=== PATIENT | female | born 1990 | race Caucasian/White ===

== ENCOUNTER 2021-03-05 07:55 | Inpatient (IN) | payer OTHER, SELFPAY ==
[2021-03-05] VITALS (69 sets, daily range): BP systolic 103–148; BP diastolic 56–86; PULSE 57–151; RESP 17; TEMP 35.6–36.3; O2SAT 97–100; BMI 42.0
[2021-03-05 08:25] LABS: Basophils % 0.3 %; Eosinophils % 0.3 %; Hematocrit 34.4 % (37.0-47.0); Hemoglobin 11.4 g/dL (11.5-15.3); Lymphocytes # 1.4 10^3/uL (0.8-4.8); Lymphocytes % 20.5 %; Mean Corpuscular HGB Conc 33.1 g/dL (30.0-36.0); Mean Corpuscular Hemoglobin 27.1 pg (28.0-34.0); Mean Corpuscular Volume 81.9 fl (81-99); Mean Platelet Volume 10.4 fL (7.4-10.4); Monocytes # 0.8 10^3/uL (0.2-0.9); Monocytes % 11.5 %; Neutrophils # 4.48 10^3/uL (1.8-7.7); Nucleated Red Blood Cells % 0 %; Platelet Count 215 10^3/cmm (130-400); Red Cell Distribution Width 12.8 % (12.1-15.1); White Blood Count 6.7 10^3/uL (4.0-10.0)
[2021-03-05] MEDS: dextrose 5%-lactated ringers 1,000 ML 125 ML IV ×2 (09:03→19:05)
[2021-03-05] MEDS: oxytocin 30 UNIT/500 ML BAG IV (09:04)
[2021-03-05] MEDS: lactated ringers 1,000 ML 999 ML IV ×2 (16:59→17:55)
[2021-03-05] MEDS: fentaNYL 50 mcg/mL INJ 2mL IVP (18:04)
[2021-03-05] MEDS: acetaminophen 325 mg Tablet 650 MG PO (18:09)
--- NOTE | 2021-03-05 18:10 | P.ANESASSM_ITS ---
Pre-Anesthetic Assessment Pre-Anesthetic Assessment: Height/Weight: Height 5 ft 5 in Weight 114.759 kg Temp Pulse Resp BP Pulse Ox 97.3 F L 64 17 124/69 100 03/05/21 16:57 03/05/21 18:36 03/05/21 18:04 03/05/21 18:36 03/05/21 18:22 Preop Diagnosis: IUP Proposed Procedure: labor epidural Was Beta Fareed taken within 24 hours: N/A Was Clonidine taken within 24 hours: N/A Social: Social History: No alcohol and No tobacco Exam: Pre-Anes Outpt Exam: alert, oriented x 3, clear to auscultation bilaterally and regular rate & rhythm Airway: Submandibular: WNL Cervical ROM: WNL MP: 1 History/ROS: No significant history except as noted Pulmonary: Pulmonary: None reported CV/HEM: CV/HEM: None reported : : None reported Hepatic: Hepatic: None reported GI: GI: None reported Metabolic: Metabolic: None reported Musc/skel: Musc/skel: None reported Neuropsych: Neuropsych: Anxiety and Depression Anesthetic Plan: ASA status: 1 Anesthesia: Anesthesia Evaluation Risk of > 500 ml blood loss (7ml/kg in children): No Meds/Allergies Current Medications: Current Medications Generic Name Dose Route Start Last Admin Trade Name Freq PRN Reason Stop Dose Admin Acetaminophen 650 mg 03/05/21 08:18 03/05/21 18:09 Acetaminophen 32 5 Mg Tablet PO 650 mg Q6H PRN Administration Mild pain or temp > 100.4 Fentanyl 25 - 100 mcg 03/05/21 16:46 03/05/21 18:04 Fentanyl 50 Mcg/ Ml Inj 2ml IVP 25 mcg Q1H PRN Administration SEVERE PAIN Dextrose/Lactated Ringer's 1,000 mls @ 125 m ls/hr 03/05/21 08:30 03/05/21 09:03 Dextrose 5%-Lact ated Ringers IV 125 mls/hr .Q8H JOSH Administration Oxytocin 30 unit in 500 ml s @ 1 mls/hr 03/05/21 08:30 03/05/21 12:15 Pitocin IV 20 milliunit/min .Q24H JOSH 20 mls/hr Titration Protocol 1 MILLIUNIT/MIN Lactated Ringer's 1,000 mls @ 999 m ls/hr 03/05/21 16:44 11/06/21 17:55 Lactated Ringers IV 999 mls/hr .Q1H1M PRN Administration See label comment s PFSH Anesthesia Female Reproductive History: : 2 Data Anesthesia CBC & Chem 7: 03/05/21 08:05 Other Labs: Laboratory Results - last 48 hr 03/05/21 08:05 WBC 6.7 RBC 4.20 Hgb 11.4 L Hct 34.4 L MCV 81.9 MCH 27.1 L MCHC 33.1 RDW 12.8 Plt Count 215 MPV 10.4 Neut % (Auto) 67.0 Lymph % (Auto) 20.5 [place] % (Auto) 11.5 Eos % (Auto) 0.3 Baso % (Auto) 0.3 Neut # (Auto) 4.48 Lymph # (Auto) 1.4 [place] # (Auto) 0.8 Eos # (Auto) 0.0 Baso # (Auto) 0.0 Nucleated RBC % (auto) 0 Nucleated RBCs # 0.0 Cardiac Studies: No Data to Display
--- NOTE | 2021-03-05 18:41 | ANES.PROC ---
Anesthesia Procedures Procedure/Date: 03/05/21 Epidural: Time Out Performed: Yes Consents Signed: Procedure Consent Consent: requested by attending/covering physician Lumbar Level: L3-L4 Epidural position: sitting Epidural procedure: sterile prep of area, 1% lidocaine to numb the area, 18 g needle, negative for paresthesia passed, neg for paresthesia, test dose given, 1.5% xylocaine 1:200k epi (4ml), placed PCEA, no systemic response, sterile dressing applied, L.U.D. no apparent complications and 0.2% Ropiavacaine @ mls/hr (13)
--- NOTE | 2021-03-05 21:43 | P.PCNOB_ITS ---
Delivery Note: Date of delivery: March 05, 2021 Delivery: This is a 30-year-old G2, P1 at 39 weeks 4 days gestation who is admitted for an elective induction. She had a suspected large for gestational age and preferred induction for that reason. Her cervix was favorable and she was started on Pitocin. She received an epidural for pain management. She had spontaneous rupture of membranes with moderate meconium noted. Rupture of membranes was approximately 3-1/2 hours prior to delivery. She had a normal spontaneous vaginal delivery of a viable female infant weight 4130 g, 9 pounds 2 ounces over an intact perineum. The was suctioned at delivery and placed on the mother's chest. The cord was clamped and cut. The placenta was delivered grossly intact and normal to inspection. There was a second- degree perineal laceration that was sutured using 3-0 chromic. Estimated blood loss 225 mL. Mother and were doing well after delivery. Coding Level of Care Code Acute Structural Analysis Engineer for Mary Robbins
--- NOTE | 2021-03-05 21:43 | PM.OPHPUD ---
Labor & Delivery H&P Update Date of Procedure: March 05, 2021 Date H&P Performed: 03/02/21 Admission Diagnosis: Preop diagnosis: IUP
[2021-03-06] VITALS (22 sets, daily range): BP systolic 116–131; BP diastolic 57–84; PULSE 61–104; RESP 16; TEMP 35.9–36.8
[2021-03-06] MEDS: benzocaine-menthol 78 gm Canister 1 SPRAY TOPICAL (06:21)
[2021-03-06] MEDS: docusate sodium 100 mg Capsule PO ×2 (09:26→21:19)
[2021-03-06] MEDS: ibuprofen 800 mg tablet PO ×3 (09:26→21:19)
[2021-03-06] MEDS: prenatal vitamin Capsule 1 CAP PO (09:26)
--- NOTE | 2021-03-06 09:38 | ANE.PACU2 ---
Inpatient post-anesthesia follow up: Airway intact: Yes Vital signs: Temperature 98.3 F Pulse Rate 78 Respiratory Rate 16 Blood Pressure 123/79 Pulse Oximetry 100 Oxygen Delivery Me thod Room Air Oxygen Flow Rate Fraction of Inspir ed Oxygen Hydration adequate: Yes Nausea and vomiting: No Pain level: 1 Mental status: Baseline
[2021-03-06 12:51] LABS: Hematocrit 34.3 % (37.0-47.0); Hemoglobin 11.1 g/dL (11.5-15.3); Mean Corpuscular HGB Conc 32.4 g/dL (30.0-36.0); Mean Corpuscular Hemoglobin 27.1 pg (28.0-34.0); Mean Corpuscular Volume 83.7 fl (81-99); Mean Platelet Volume 10.7 fL (7.4-10.4); Platelet Count 216 10^3/cmm (130-400); White Blood Count 10.7 10^3/uL (4.0-10.0)
--- NOTE | 2021-03-06 17:05 | PM.OBGYDC ---
Discharge Providers HOUSING COORDINATOR Date of Admission: 03/05/21 07:55 Date of Discharge: 03/06/21 Attending Provider at Admission: Rachna Frost MD Attending Provider at Discharge: Rachna Frost MD Primary Care Provider: [facility] Diagnoses at Discharge Discharge Diagnosis (1) (normal spontaneous vaginal delivery): Status: Acute Reason for Visit Reason for Visit: induction Hospital Course Hospital Course This is a 30-year-old to now P2 who was admitted for an elective induction. She had a normal spontaneous vaginal delivery of a viable female infant. Mother and did well after delivery. On day #1 she was ambulating, tolerating a regular diet, had decreased vaginal bleeding, no pain and was requesting discharge home. Physical Exam Narrative: EXAM NARRATIVE: Alert and oriented, sitting in bedside sofa. Heart regular rate and rhythm no murmurs, lungs clear to auscultation bilaterally, abdomen soft nontender, extremities with 3+ tight edema, no calf tenderness. Urinary Catheter Management^: Payne: Cath Placed During This Visit: yes Reason for Continuing Indwelling Catheter: Accurate Measurement of Urinary Output in Critically Ill Patients Urinary Catheter Date of Insertion: 03/05/21 Urinary Catheter Time of Insertion: 19:12 Discharge Data Data Completed and Pending: Pending at discharge Category Date Time Status Antibody Identifi cation Routine Lab 03/05/21 08:05 Results Complete Crossmat ch Routine Lab 03/05/21 08:05 Results Rho D Immune Glob ulin Routine Lab 03/05/21 08:05 Results Type and Screen R outine Lab 03/05/21 08:05 Results Labs from last 24 hours 03/06/21 03/06/21 03/05/21 12:29 12:29 08:05 WBC 10.7 H RBC 4.10 Hgb 11.1 L Hct 34.3 L MCV 83.7 MCH 27.1 L MCHC 32.4 RDW 13.0 Plt Count 216 MPV 10.7 H Blood Type O Negative Rho(D) Type Negative Antibody Screen Positive Antibody Identific ation Anti-D Screen Negative Vitals: Last Vital Signs Temp 97.3 F L 03/06/21 15:04 Pulse 104 H 03/06/21 15:04 Resp 17 03/05/21 18:04 BP 131/84 03/06/21 15:04 Pulse Ox 100 03/05/21 18:22 Discharge Plan Discharge Patient Disposition: Home Condition: Stable Discharge Orders: Discharge Order (Routine); Ordered 03/06/21 Ordered By: Rachna Frost Referrals: Rachna Frost MD [Physician] - 1 month Discharge Diet: Usual diet Discharge Activity: Limit activity as instructed Activity Restrictions/Additional Instructions: Nothing per vagina for 6 weeks. Discharge Attestations HOUSING COORDINATOR Time Spent in Discharge Care*: less than 30 min Coding Level of Care Code Acute [facility] for [facility] Fwd Diagnoses (normal spontaneous vaginal delivery) O80
[2021-03-06] MEDS: lanolin oint 7 gm 1 APPLIC TOPICAL (21:18)
== END 2021-03-06 23:15 | disposition home or self-care (01) | DRG 807 ==
LOC: OPOB 07:56 → OBGYN 07:56
PROVIDERS: Admitting Provider Family Medicine; Visit Provider Family Medicine
DX: O77.0 Labor and delivery complicated by meconium in amniotic fluid (principal); Z37.0 Single live birth; O99.344 Other mental disorders complicating childbirth; F41.8 Other specified anxiety disorders; O36.63X0 Maternal care for excessive fetal growth, third trimester, not applicable or unspecified; O70.1 Second degree perineal laceration during delivery; Z3A.39 39 weeks gestation of pregnancy
CPT/HCPCS: 36415; 80500; 85025; 85027; 85460; 86850; 86870; 86900; 90384; J3010